=== PATIENT | female | born 1975 | race Caucasian/White ===

== ENCOUNTER 2017-07-24 12:46 | Inpatient (IN) ==
[2017-07-24] MEDS ORDERED: diazePAM 5 MG TABLET PO ONE (13:18)
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
[2017-07-24 13:38] LABS: Bilirubin,Urine Negative (Negative); Blood,Urine Small (Negative); Color,Urine Yellow (Yellow); Glucose,Urine (UA) Normal (Normal); Ketones,Urine Negative (Negative); Leukocyte Esterase,Urine Negative (Negative); Nitrite,Urine Negative (Negative); Protein,Urine Negative (Neg-Trace); Specific Gravity,Urine 1.019 (1.010-1.025); Urobilinogen,Urine Normal (Normal)
[2017-07-24 13:39] LABS: Hyaline Casts,Urine None Seen per lpf (None-Few); RBC,Urine 0-3 per hpf (0-3); Squamous Epithelial Cell,Urine Many per lpf (None-Few); WBC,Urine 0-3 per hpf (0-3)
[2017-07-24 13:43] LABS: Amphetamine Screen,Urine Negative ng/mL (Cutoff=1000); Barbiturate Screen,Urine Negative ng/mL (Cutoff=200); Benzodiazepines Screen,Urine Positive ng/mL (Cutoff=200); Cannabinoid Screen,Urine Positive ng/mL (Cutoff = 50); Cocaine Screen,Urine Negative ng/mL (Cutoff= 300); Opiate Screen,Urine Negative ng/mL (Cutoff=300); Phencyclidine Screen,Urine Negative ng/mL (Cutoff=25)
[2017-07-24 13:49] LABS: Clarity,Urine Clear (Clear)
[2017-07-24 13:51] LABS: Basophils # 0.1 K/mcL (0.0-0.2); Basophils % 0.5 %; Eosinophils # 0.1 K/mcL (0.0-0.6); Eosinophils % 1.3 %; Hematocrit 39.9 % (35.3-44.9); Hemoglobin 13.2 g/dL (11.5-15.4); Immature Granulocytes % 0.3 % (0-4); Lymphocytes # 1.9 K/mcL (0.6-4.6); Lymphocytes % 17.7 %; Mean Corpuscular HGB Conc 33.1 g/dL (31.6-35.5); Mean Corpuscular Hemoglobin 27.7 pg (28.0-33.3); Mean Corpuscular Volume 83.6 fL (83.0-100.0); Mean Platelet Volume 10.4 fL (9.4-12.4); Monocytes # 0.6 K/mcL (0.0-1.3); Monocytes % 5.7 %; Neutrophils # 7.8 K/mcL (1.6-8.9); Platelet Count 313 K/mcL (140-400); Red Blood Count 4.77 M/mcL (3.82-4.97); Red Cell Distribution Width 14.8 % (11.5-14.5); Segmented Neutrophils % 74.5 %
[2017-07-24 13:57] LABS: Bacteria,Urine Moderate per hpf (None-Few)
[2017-07-24 14:05] LABS: Alanine Aminotransferase 12 Units/L (0-55); Albumin 3.3 g/dL (3.5-5.0); Albumin/Globulin Ratio 0.8 (1.1-2.2); Alkaline Phosphatase 65 Units/L (38-126); Aspartate Amino Transferase 12 Units/L (5-34); BUN/Creatinine Ratio 22 (6-26); Bilirubin,Total 0.3 mg/dL (0.2-1.2); Blood Urea Nitrogen 22 mg/dL (7-20); Calcium 8.9 mg/dL (8.6-10.8); Carbon Dioxide 24 mEq/L (19-29); Chloride 103 mEq/L (98-109); Globulin 4.1 g/dL (2.4-3.5); Glucose 137 mg/dL (70-99); Osmolality,Calculated 289 (280-300); Potassium 3.6 mEq/L (3.5-4.5); Sodium 137 mEq/L (136-145); Total Protein 7.4 g/dL (6.0-8.3); eGFR For African Americans > 60 (> 60); eGFR For Non-African Americans > 60 (> 60)
[2017-07-24 14:06] LABS: Acetaminophen < 1.0 mcg/mL (10-30); Ethanol < 10 mg/dL (0-10); Salicylate < 5.0 mg/dL (15-30)
[2017-07-24 14:24] LABS: Thyroid Stimulating Hormone 2.693 mcIU/mL (0.350-4.840)
[2017-07-24] MEDS ORDERED: *HR* LORazepam 2 MG/ML VIAL IM STA (15:27)
[2017-07-24] MEDS ORDERED: Haloperidol Lactate 5 MG/ML VIAL IM ONE (15:27)
[2017-07-24] MEDS ORDERED: Nicotine 21 MG PATCH.TD24 TD STA (15:45)
--- NOTE | 2017-07-24 15:47 | Emergency Department Note ---
Disposition Clinical Impression: Suicidal ideation Disposition: Admitted As Inpatient Condition: Fair Time of Disposition: 17:58 Psych HPI - General Chief Complaint: ED Psychiatric Symptoms Stated Complaint: SI Time Seen by Provider: 07/24/17 13:18 Source: patient Mode of arrival: ambulatory - History of Present Illness Duration: getting worse Improves with: none Worsens with: none Associated symptoms: Reports: denies other symptoms - Related Data Home Medications Medication Instructions Recorded Confirmed Doxazosin Mesylate [Cardura] 2 mg PO DAILY 07/24/17 07/24/17 Lisinopril [Zestril] 10 mg PO DAILY 07/24/17 07/24/17 Sertraline [Zoloft] 200 mg PO DAILY 07/24/17 07/24/17 diazePAM [Valium] 5 mg PO TID 07/24/17 07/24/17 hydroCHLOROthiazide 25 mg PO DAILY 07/24/17 07/24/17 [Hydrochlorothiazide] Allergies Allergy/AdvReac Type Severity Reaction Status Date / Time bupropion [From Wellbutrin] Allergy Anaphylaxis Verified 07/24/17 13:01 latex Allergy Rash Verified 07/24/17 13:02 Constitutional: Denies: fever, chills, weakness, weight change Eyes: Denies: eye pain, eye discharge, vision change ENT ED: Denies: ear pain, throat pain, dental pain, hearing loss, epistaxis, congestion, dysphagia Cardiovascular: Denies: chest pain, palpitations, dyspnea on exertion, edema, syncope Respiratory: Denies: cough, dyspnea, wheezes, hemoptysis, stridor Gastrointestinal: Denies: abdominal pain, nausea, vomiting, diarrhea, constipation, hematemesis, melena, hematochezia Genitourinary: Denies: dysuria, frequency, hematuria, discharge Musculoskeletal: Denies: back pain, neck pain, arthralgia, myalgia Integumentary: Denies: rash, abrasion, lesions Neurological: Denies: headache, weakness, numbness, paresthesias, confusion, abnormal gait, vertigo Psychiatric: Reports: as per HPI, depression, suicidal thoughts. 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 I agree with previously documented history of present illness and physical exam. Patient becoming slightly agitated despite having her normal dose of Valium. We will go ahead and order IM Benadryl, Haldol and Ativan in case she continues to escalate. She is also complaining of needing to smoke so we will order a nicotine patch. She is medically cleared, 1-A will be down to evaluate. Time: 15:46 Reevaluation #2: 1-A will admit. Patient remained agitated, gave medication and has responded well Time: 17:58 Vital Signs Temperature 98.1 F 07/24/17 13:02 Pulse Rate 107 07/24/17 13:02 Respiratory Rate 20 07/24/17 13:02 Blood Pressure 122/71 07/24/17 13:02 O2 Sat by Pulse Oximetry 96 07/24/17 13:02 Temperature 98.1 F 07/24/17 13:02 Pulse Rate 107 07/24/17 13:02 Respiratory Rate 20 07/24/17 13:02 Blood Pressure 122/71 07/24/17 13:02 O2 Sat by Pulse Oximetry 96 07/24/17 13:02 Oxygen Delivery Oxygen Delivery Room Air Psych - Lab Data Result diagrams: 07/24/17 13:20 07/24/17 13:20 Lab Results 07/24/17 07/24/17 07/24/17 Range/Units 13:20 13:20 13:33 WBC 10.5 (4.3-11.1) K/mcL RBC 4.77 (3.82-4.97) M/mcL Hgb 13.2 (11.5-15.4) g/dL Hct 39.9 (35.3-44.9) % MCV 83.6 (83.0-100.0) fL MCH 27.7 L (28.0-33.3) pg MCHC 33.1 (31.6-35.5) g/dL RDW 14.8 H (11.5-14.5) % Plt Count 313 (140-400) K/mcL MPV 10.4 (9.4-12.4) fL Immature Gran % 0.3 (0-4) % Seg Neutrophils % 74.5 % Lymphocytes % 17.7 % Monocytes % 5.7 % Eosinophils % 1.3 % Basophils % 0.5 % Neutrophils # 7.8 (1.6-8.9) K/mcL Lymphocytes # 1.9 (0.6-4.6) K/mcL Monocytes # 0.6 (0.0-1.3) K/mcL Eosinophils # 0.1 (0.0-0.6) K/mcL Basophils # 0.1 (0.0-0.2) K/mcL Sodium 137 (136-145) mEq/L Potassium 3.6 (3.5-4.5) mEq/L Chloride 103 (98-109) mEq/L Carbon Dioxide 24 (19-29) mEq/L BUN 22 H (7-20) mg/dL Creatinine 1.02 (0.57-1.11) mg/dL Est GFR ( Amer) > 60 (> 60) Est GFR (Non-Af Amer) > 60 (> 60) BUN/Creatinine Ratio 22 (6-26) Glucose 137 H (70-99) mg/dL Calculated Osmolality 289 (280-300) Calcium 8.9 (8.6-10.8) mg/dL Total Bilirubin 0.3 (0.2-1.2) mg/dL AST 12 (5-34) Units/L ALT 12 (0-55) Units/L Alkaline Phosphatase 65 (38-126) Units/L Serum Total Protein 7.4 (6.0-8.3) g/dL Albumin 3.3 L (3.5-5.0) g/dL Globulin 4.1 H (2.4-3.5) g/dL Albumin/Globulin Ratio 0.8 L (1.1-2.2) TSH 2.693 (0.350-4.840) mcIU/mL Urine Color Yellow (Yellow) Urine Clarity Clear (Clear) Urine pH 6.0 (5.0-8.0) pH Units Ur Specific [place] 1.019 (1.010-1.025) Urine Protein Negative (Neg-Trace) mg/dL Urine Glucose (UA) Normal (Normal) mg/dL Urine Ketones Negative (Negative) mg/dL Urine Blood Small H (Negative) Urine Nitrite Negative (Negative) Urine Bilirubin Negative (Negative) Urine Urobilinogen Normal (Normal) mg/dL Ur Leukocyte Esterase Negative (Negative) Urine Microscopic RBC 0-3 (0-3) per hpf Urine Microscopic WBC 0-3 (0-3) per hpf Ur Squamous Epith Cells Many H (None-Few) per lpf Urine Bacteria Moderate H (None-Few) per hpf Hyaline Casts None Seen (None-Few) per lpf Urine Yeast Test Not Performed Ur Culture Indicated? NO (NO) Urine Test (Negative) Salicylates < 5.0 L (15-30) mg/dL Urine Opiates Screen (Pfdedl=328) ng/mL Acetaminophen < 1.0 L (10-30) mcg/mL Ur Barbiturates Screen (Mntdpu=351) ng/mL Ur Phencyclidine Scrn (Cutoff=25) ng/mL Ur Amphetamines Screen (Nrcwgg=2264) ng/mL U Benzodiazepines Scrn (Ksfnwx=859) ng/mL Urine Cocaine Screen (Cutoff= 300) ng/mL U Marijuana (THC) Screen (Cutoff = 50) ng/mL Ethyl Alcohol < 10 (0-10) mg/dL 07/24/17 07/24/17 Range/Units 13:33 13:33 WBC (4.3-11.1) K/mcL RBC (3.82-4.97) M/mcL Hgb (11.5-15.4) g/dL Hct (35.3-44.9) % MCV (83.0-100.0) fL MCH (28.0-33.3) pg MCHC (31.6-35.5) g/dL RDW (11.5-14.5) % Plt Count (140-400) K/mcL MPV (9.4-12.4) fL Immature Gran % (0-4) % Seg Neutrophils % % Lymphocytes % % Monocytes % % Eosinophils % % Basophils % % Neutrophils # (1.6-8.9) K/mcL Lymphocytes # (0.6-4.6) K/mcL Monocytes # (0.0-1.3) K/mcL Eosinophils # (0.0-0.6) K/mcL Basophils # (0.0-0.2) K/mcL Sodium (136-145) mEq/L Potassium (3.5-4.5) mEq/L Chloride (98-109) mEq/L Carbon Dioxide (19-29) mEq/L BUN (7-20) mg/dL Creatinine (0.57-1.11) mg/dL Est GFR ( Amer) (> 60) Est GFR (Non-Af Amer) (> 60) BUN/Creatinine Ratio (6-26) Glucose (70-99) mg/dL Calculated Osmolality (280-300) Calcium (8.6-10.8) mg/dL Total Bilirubin (0.2-1.2) mg/dL AST (5-34) Units/L ALT (0-55) Units/L Alkaline Phosphatase (38-126) Units/L Serum Total Protein (6.0-8.3) g/dL Albumin (3.5-5.0) g/dL Globulin (2.4-3.5) g/dL Albumin/Globulin Ratio (1.1-2.2) TSH (0.350-4.840) mcIU/mL Urine Color (Yellow) Urine Clarity (Clear) Urine pH (5.0-8.0) pH Units Ur Specific [place] (1.010-1.025) Urine Protein (Neg-Trace) mg/dL Urine Glucose (UA) (Normal) mg/dL Urine Ketones (Negative) mg/dL Urine Blood (Negative) Urine Nitrite (Negative) Urine Bilirubin (Negative) Urine Urobilinogen (Normal) mg/dL Ur Leukocyte Esterase (Negative) Urine Microscopic RBC (0-3) per hpf Urine Microscopic WBC (0-3) per hpf Ur Squamous Epith Cells (None-Few) per lpf Urine Bacteria (None-Few) per hpf Hyaline Casts (None-Few) per lpf Urine Yeast Ur Culture Indicated? (NO) Urine Test Negative (Negative) Salicylates (15-30) mg/dL Urine Opiates Screen Negative (Cacwtt=982) ng/mL Acetaminophen (10-30) mcg/mL Ur Barbiturates Screen Negative (Vnrhpy=063) ng/mL Ur Phencyclidine Scrn Negative (Cutoff=25) ng/mL Ur Amphetamines Screen Negative (Ycqlvs=0430) ng/mL U Benzodiazepines Scrn Positive H (Orbncf=868) ng/mL Urine Cocaine Screen Negative (Cutoff= 300) ng/mL U Marijuana (THC) Screen Positive H (Cutoff = 50) ng/mL Ethyl Alcohol (0-10) mg/dL Psychiatric Medical Clearance - Medical Clearance Checklist Medical History: No Social History Section defined Current Vitals: Last Vital Signs Temp 98.1 F 07/24/17 13:02 Pulse 107 07/24/17 13:02 Resp 20 07/24/17 13:02 BP 122/71 07/24/17 13:02 Pulse Ox 96 07/24/17 13:02 Psychiatric Lab Panel: Drug Levels and Toxicity 07/24/17 07/24/17 13:20 13:33 Urine Opiates Screen Negative Acetaminophen < 1.0 L Ur Barbiturates Screen Negative Ur Phencyclidine Scrn Negative Ur Amphetamines Screen Negative U Benzodiazepines Scrn Positive H Urine Cocaine Screen Negative U Marijuana (THC) Screen Positive H Ethyl Alcohol < 10 Abnormal Labs: Abnormal lab results MCH 27.7 pg (28.0-33.3) L 07/24/17 13:20 RDW 14.8 % (11.5-14.5) H 07/24/17 13:20 BUN 22 mg/dL (7-20) H 07/24/17 13:20 Glucose 137 mg/dL (70-99) H 07/24/17 13:20 Albumin 3.3 g/dL (3.5-5.0) L 07/24/17 13:20 Globulin 4.1 g/dL (2.4-3.5) H 07/24/17 13:20 Albumin/Globulin Ratio 0.8 (1.1-2.2) L 07/24/17 13:20 Urine Blood Small (Negative) H 07/24/17 13:33 Ur Squamous Epith Cells Many per lpf (None-Few) H 07/24/17 13:33 Urine Bacteria Moderate per hpf (None-Few) H 07/24/17 13:33 Salicylates < 5.0 mg/dL (15-30) L 07/24/17 13:20 Acetaminophen < 1.0 mcg/mL (10-30) L 07/24/17 13:20 U Benzodiazepines Scrn Positive ng/mL (Ujckng=287) H 07/24/17 13:33 U Marijuana (THC) Screen Positive ng/mL (Cutoff = 50) H 07/24/17 13:33 Statement of Medical Clearance: I have evaluated the patient, reviewed diagnostic information, and certify that the patient's medical condition is sufficiently stable that transfer to the psychiatric unit does not pose a significant risk of deterioration.
[2017-07-24] MEDS ORDERED: Haloperidol Lactate 5 MG/ML VIAL IM PRN (17:42)
[2017-07-24] MEDS ORDERED: *HR* LORazepam 2 MG/ML VIAL IM PRN (17:42)
[2017-07-24] MEDS ORDERED: Mag Hydrox/Al Hydrox/Simeth 30 ML UDC PO PRN (17:42)
[2017-07-24] MEDS ORDERED: Ibuprofen 400 MG TABLET PO PRN (17:42)
[2017-07-24] MEDS ORDERED: MOM Conc 10 ML UD.LIQ PO PRN (17:42)
[2017-07-24] MEDS ORDERED: *HR* LORazepam 1 MG TABLET PO PRN (17:42)
[2017-07-24] MEDS ORDERED: hydrOXYzine pamoate 25 MG CAPSULE PO PRN (17:42)
[2017-07-24] MEDS: diazePAM 5 MG TABLET PO SCH (19:56)
[2017-07-24] MEDS: traZODone 50 MG TABLET PO PRN (19:56)
[2017-07-25] MEDS: hydroCHLOROthiazide 25 MG TABLET PO SCH (08:03)
[2017-07-25] MEDS: diazePAM 5 MG TABLET PO SCH ×4 (08:04→20:12)
[2017-07-25] MEDS: Nicotine 21 MG PATCH.TD24 TD SCH (08:04)
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
[2017-07-25] MEDS: traZODone 50 MG TABLET PO PRN (20:12)
[2017-07-25] MEDS ORDERED: Ziprasidone 20 MG CAPSULE PO SCH (21:00)
[2017-07-26] MEDS: Nicotine 21 MG PATCH.TD24 TD SCH (08:46)
[2017-07-26] MEDS: diazePAM 5 MG TABLET PO SCH ×2 (08:46→14:04)
[2017-07-26] MEDS: hydroCHLOROthiazide 25 MG TABLET PO SCH (08:46)
[2017-07-26 09:43] VITALS: BP 144/89
--- NOTE | 2017-07-26 13:12 | Discharge Summary ---
Date of Encounter: 07/26/17 Time of Encounter: 09:55 Diagnosis - Discharge Diagnosis (1) Posttraumatic stress disorder Priority: Primary Status: Acute (2) Major depressive disorder, recurrent episode, severe Priority: Secondary Status: Acute Qualifiers: Psychotic features: without psychotic features Qualified Code(s): F33.2 - Major depressive disorder, recurrent severe without psychotic features (3) Borderline personality disorder Priority: Secondary Status: Chronic (4) Cannabis abuse Status: Acute Medications - Discharge Medications Prescriptions: diazePAM [Valium] 10 mg PO TID #45 tablet Sertraline [Zoloft] 200 mg PO DAILY #60 Ziprasidone [Geodon] 40 mg PO HS #60 Lisinopril [Zestril] 10 mg PO DAILY 07/24/17 [History] hydroCHLOROthiazide [Hydrochlorothiazide] 25 mg PO DAILY 07/24/17 [History] Sertraline [Zoloft] 200 mg PO DAILY #60 07/26/17 [Rx] Ziprasidone [Geodon] 40 mg PO HS #60 07/26/17 [Rx] diazePAM [Valium] 10 mg PO TID #45 tablet 07/26/17 [Rx] 3 Allergy/AdvReac Type Severity Reaction Status Date / Time bupropion [From Wellbutrin] Allergy Anaphylaxis Verified 07/24/17 13:01 latex Allergy Rash Verified 07/24/17 13:02 Provider Date of admission: 07/24/17 17:37 Primary care physician: PCP NONE Discharging clinician: Mahdavi Narvaez Assessment and Plan - Patient/Caregiver Discharge Instructions Activity: resume usual activities as tolerated Diet: regular diet - Follow up Plan Follow up with: [facility] [Other] - 08/02/17 12:00 pm (The above appointment is with [facility] for mental health counseling services. You are also scheduled to see Dr. Moore on 09/01/2017 at 9:45am for outpatient psychiatric assessment and medication management services.) Functional capacity at discharge: independent ambulation Overall status at discharge: Stable Disposition: Home, Self-Care Hospital Course Hospital course: Ms. King Woodall is a 41 year old female with a history of PTSD, depression, personality disorder and a reported history of dissociative identity disorder who presented to the hospital with increasing depression and anxiety. Patient was admitted to [facility] for psychiatric stabilization she was incorporated into the therapeutic milieu and offer group and individual as well as recreational therapy. She was also offered psychoeducational materials and supportive therapy. She was placed on suicide precautions and close observation per unit protocol. Patient did not attend groups because of the concern that there were too many men on the unit for her. I am realizing that there were male patients here she threw a chair and became very upset. She did eventually calm down and was agreeable to try some medication changes. Patient was started on Geodon at bedtime. She was continued on Zoloft. Her Valium was increased to 3 times a day. Patient tolerated these medication changes well. She had some mild improvement in her mood and better sleep. She states that she is still feeling depressed but she was feeling more hopeful about the future. She was very fixated on medications and getting Adderall which her previous doctor prescribed to her. I encouraged the patient to discuss some of these issues with her outpatient doctor. She would like a new outpatient psychiatrist to help with medication management. Patient's was contacted and he felt patient had returned to baseline and was willing to take her home. At the time of discharge patient denied suicidal or homicidal ideation, intent, or plan. She was interested in continuing outpatient treatment with a new provider. - Time Spent with Patient Total time spent providing and/or coordinating discharge services: Greater than 30 minutes Quality - Multiple Antipsychotics Patient discharged on 2 or more antipsychotic medications: No Procedures - Procedures Procedures: Medication Management, Crisis Stabilization, Supportive Therapy, Group Therapy, Psychoeducational Therapy Mental Status Exam - Mental Status Exam Patient orientation: Yes Person, Yes Time, Yes Place Level of alertness: Alert Patient appearance: Appropriate Behavior: calm Psychomotor activity: Normal Eye contact: Maintains Eye Contact Mood description: Euthymic/stable Affect description: other (Irritable ) Speech pattern: Normal rate, Normal rhythm, Normal tone Speech Volume: Normal Thought process: Intact, Goal Oriented Thought Content: Yes Intact, No Suicidal ideation, No Homicidal ideation Perceptual Disturbances: No Auditory hallucinations, No Visual hallucinations Judgment: Limited Insight: Partial
== END 2017-07-26 14:55 | disposition home or self-care (01) | DRG 882 ==
LOC: EMEROO 12:46 → 1ANU 17:37
PROVIDERS: ADMIT Student in an Organized Health Care Education/Training Program; ATTEND Student in an Organized Health Care Education/Training Program